=== PATIENT | female | born 1960 | race African-American/Black ===

== ENCOUNTER 2020-02-04 11:08 | Emergency (ER) | payer MEDICAID ==
[~2020-02-04] VITALS: Ht 165.1 cm; Wt 65.0 kg
[~2020-02-04 11:08] MED LIST: CLINDAMYCIN; DIAZ10TA4 PO; HYDR-519 PO; HYDR25TA PO; HYDROCHLOROTHIAZIDE; IBUPROFEN; LISI40TA4 PO; METO-539 PO; PEPCID
[2020-02-04] MEDS ORDERED: ACETAMINOPHEN 500MG TABLET PO ONE (13:00)
[2020-02-04 13:59] VITALS: BP 140/60
== END 2020-02-04 14:01 | disposition home or self-care (01) ==
LOC: ER 11:21
DX: S52.501A Unspecified fracture of the lower end of right radius, initial encounter for closed fracture (principal); Z46.89 Encounter for fitting and adjustment of other specified devices; R03.0 Elevated blood-pressure reading, without diagnosis of hypertension; X58.XXXA Exposure to other specified factors, initial encounter; Y93.89 Activity, other specified; Y92.89 Other specified places as the place of occurrence of the external cause; F17.210 Nicotine dependence, cigarettes, uncomplicated
CPT/HCPCS: 99282; 99283

== ENCOUNTER 2020-03-30 07:11 | Inpatient (IN) | payer MEDICAID ==
[~2020-03-30] VITALS: Ht 157.5 cm; Wt 61.2 kg
[2020-03-30] MEDS ORDERED: ONDANSETRON HCL 4MG/2ML INJ IV STA ×2 (07:32→11:42)
[2020-03-30] MEDS ORDERED: MORPHINE SULFATE 4 MG/ML CPJ (NOT FOR IM USE) IV STA ×2 (07:32→11:42)
[2020-03-30 08:09] LABS: BASOPHILS % 1.1 % (0.0-2.0); EOSINOPHILS % 1.2 % (0.0-5.0); HEMATOCRIT. 40.2 % (36.0-48.0); HEMOGLOBIN. 13.2 g/dL (12.0-16.0); LYMPHOCYTES % 15.3 % (20.0-50.0); MEAN CORPUSCULAR HEMOGLOBIN 27.6 pg (28.0-32.0); MEAN CORPUSCULAR VOLUME 83.6 fL (81.0-99.0); MEAN PLATELET VOLUME 9.3 fl (7.4-10.4); MONOCYTES % 6.7 % (2.0-8.0); NEUTROPHILS % 75.7 % (40.0-76.0); PLATELET 305 x1000/uL (130-400); RED BLOOD CELL COUNT 4.81 mill/uL (4.2-5.4); RED CELL DISTRIBUTION WIDTH 15.5 % (11.6-14.6)
[2020-03-30 08:13] LABS: CHLORIDE 111 mEq/L (98-107)
[2020-03-30 08:16] LABS: PROTHROMBIN TIME 10.6 sec (9.6-11.0)
[2020-03-30 09:54] LABS: CLARITY URINE TURBID (CLEAR); COLOR URINE YELLOW (YELLOW); KETONES URINE NEGATIVE (NEGATIVE); LEUKOCYTE ESTERASE URINE NEGATIVE (NEGATIVE); NITRITE URINE NEGATIVE (NEGATIVE); OCCULT BLOOD URINE NEGATIVE (NEGATIVE); PROTEIN URINE NEGATIVE (NEGATIVE); SPECIFIC GRAVITY URINE 1.034 (1.005-1.030); UROBILINOGEN URINE 0.2 E.U./dL (0.2-1.0)
[2020-03-30] MEDS ORDERED: IOHEXOL-300 100 ML BOTTLE ONE (10:50)
[2020-03-30] MEDS ORDERED: DEXT 5%/0.9% NACL 1,000 ML IV ONE (11:45)
[2020-03-30] MEDS ORDERED: ONDANSETRON 4MG/5ML UDC PO ONE (13:30)
[2020-03-30] MEDS ORDERED: MORPHINE SULFATE 2 MG/ML CPJ (NOT FOR IM USE) IV PRN (13:30)
[2020-03-30] MEDS: DEXT 5%/0.45% NACL 1000ML 1,000 ML IV SCH (15:31)
[2020-03-30] MEDS: AMLODIPINE 10MG TABLET PO SCH (15:31)
[2020-03-30 15:51] VITALS: BP 137/71
[2020-03-30 16:00] VITALS: BP 153/69
[2020-03-30 20:00] VITALS: BP 123/72
[2020-03-30 23:30] LABS: *BENZODIAZEPINES SCREEN URINE NEGATIVE (NEGATIVE); *COCAINE SCREEN URINE PRESUMTIVE POSITIVE (NEGATIVE); METHADONE URINE SCREEN NEGATIVE (NEGATIVE); OPIATES URINE SCREEN PRESUMTIVE POSITIVE (NEGATIVE); PHENCYCLIDINE URINE SCREEN PRESUMTIVE POSITIVE (NEGATIVE)
[2020-03-30 23:31] LABS: *AMPHETAMINES SCREEN URINE NEGATIVE (NEGATIVE); *BARBITURATES SCREEN URINE NEGATIVE (NEGATIVE); CANNABINOID URINE SCREEN NEGATIVE (NEGATIVE)
[2020-03-31] VITALS: BP 127/70
[2020-03-31 04:00] VITALS: BP 133/61
[2020-03-31] MEDS: DEXT 5%/0.45% NACL 1000ML 1,000 ML IV SCH (05:10)
[2020-03-31 06:52] LABS: BASOPHILS % 0.8 % (0.0-2.0); EOSINOPHILS % 2.3 % (0.0-5.0); HEMATOCRIT. 35.3 % (36.0-48.0); HEMOGLOBIN. 11.8 g/dL (12.0-16.0); LYMPHOCYTES % 28.6 % (20.0-50.0); MEAN CORPUSCULAR HEMOGLOBIN 27.8 pg (28.0-32.0); MEAN CORPUSCULAR VOLUME 83.2 fL (81.0-99.0); MEAN PLATELET VOLUME 9.2 fl (7.4-10.4); MONOCYTES % 7.7 % (2.0-8.0); NEUTROPHILS % 60.6 % (40.0-76.0); PLATELET 264 x1000/uL (130-400); RED BLOOD CELL COUNT 4.25 mill/uL (4.2-5.4); RED CELL DISTRIBUTION WIDTH 15.2 % (11.6-14.6)
[2020-03-31 07:04] LABS: CHLORIDE 109 mEq/L (98-107)
[2020-03-31 08:00] VITALS: BP 129/69
[2020-03-31] MEDS: AMLODIPINE 10MG TABLET PO SCH (08:47)
[2020-03-31] MEDS ORDERED: PANTOPRAZOLE SODIUM 40 MG/VIAL IV SCH (09:00)
[2020-03-31] MEDS ORDERED: KCL 20MEQ/100ML PREMIX 100 ML IV SCH (10:00)
[2020-03-31 12:00] VITALS: BP 128/71
[2020-03-31] MEDS ORDERED: POTASSIUM CHLORIDE 20MEQ TABLET SR PO NR (14:07)
[2020-03-31 16:00] VITALS: BP 140/68
[2020-03-31] MEDS ORDERED: ATOR20TA65 MT (17:57)
[2020-03-31 18:55] VITALS: BP 140/68
[2020-04-01] MEDS ORDERED: ALBU18HF2 IH (09:59)
[2020-04-01] MEDS ORDERED: ACET650T37 MT (09:59)
== END 2020-03-31 21:07 | disposition home or self-care (01) | DRG 247 ==
LOC: ER 07:17 → EDBEDREQTM 10:59 → EDBEDREQ 10:59 → EDBEDREQSVC 10:59 → 6EST 11:42 → EDBEDREQ 11:46 → ENRESERV 12:10
PROVIDERS: ADMIT Internal Medicine; ATTEND Internal Medicine
DX: K56.600 Partial intestinal obstruction, unspecified as to cause (principal); E44.1 Mild protein-calorie malnutrition; E87.8 Other disorders of electrolyte and fluid balance, not elsewhere classified; F17.210 Nicotine dependence, cigarettes, uncomplicated; I10 Essential (primary) hypertension; J44.9 Chronic obstructive pulmonary disease, unspecified; Z90.49 Acquired absence of other specified parts of digestive tract; Z88.0 Allergy status to penicillin; Z88.8 Allergy status to other drugs, medicaments and biological substances; Z79.2 Long term (current) use of antibiotics; Z79.899 Other long term (current) drug therapy; Z71.6 Tobacco abuse counseling; Z68.24 Body mass index [BMI] 24.0-24.9, adult
CPT/HCPCS: 36415; 71045; 74018; 74177; 80048; 80053; 80305; 81003; 83605; 84484; 85025; 93005; 99285; C9113; J2270; J2405; J3480; J7042; Q9967

== ENCOUNTER 2020-10-30 18:09 | Inpatient (IN) | payer MEDICAID ==
[~2020-10-30] VITALS: Ht 165.1 cm; Wt 60.8 kg
[~2020-10-30 18:09] MED LIST changes: +ACET650T37 MT; +ALBU18HF2 IH; +ATOR20TA65 MT; -CLINDAMYCIN; -HYDROCHLOROTHIAZIDE; -IBUPROFEN; +LISI40TA13 PO; -LISI40TA4 PO; -METO-539 PO; -PEPCID
[2020-10-30] MEDS ORDERED: MORPHINE SULFATE 4 MG/ML CPJ (NOT FOR IM USE) IV STA (19:03)
[2020-10-30] MEDS ORDERED: ONDANSETRON HCL 4MG/2ML INJ IV STA (19:03)
[2020-10-30] MEDS ORDERED: SODIUM CHLORIDE 0.9% 1,000 ML IV ONE (19:15)
[2020-10-30 19:23] LABS: CLARITY URINE CLEAR (CLEAR); COLOR URINE YELLOW (YELLOW); KETONES URINE NEGATIVE (NEGATIVE); LEUKOCYTE ESTERASE URINE TRACE (NEGATIVE); NITRITE URINE NEGATIVE (NEGATIVE); OCCULT BLOOD URINE 1+ (NEGATIVE); PH URINE 5.5 (4.5-8.0); PROTEIN URINE NEGATIVE (NEGATIVE); UROBILINOGEN URINE 0.2 E.U./dL (0.2-1.0)
[2020-10-30 19:56] LABS: BASOPHILS % 0.3 % (0.0-2.0); EOSINOPHILS % 1.1 % (0.0-5.0); HEMATOCRIT. 37.3 % (36.0-48.0); HEMOGLOBIN. 12.2 g/dL (12.0-16.0); LYMPHOCYTES % 14.5 % (20.0-50.0); MEAN CORPUSCULAR HEMOGLOBIN 26.5 pg (28.0-32.0); MONOCYTES % 6.6 % (2.0-8.0); NEUTROPHILS % 77.5 % (40.0-76.0); PLATELET 278 x1000/uL (130-400); RED BLOOD CELL COUNT 4.61 mill/uL (4.2-5.4); RED CELL DISTRIBUTION WIDTH 15.7 % (11.6-14.6)
[2020-10-30 20:01] LABS: CHLORIDE 109 mEq/L (98-107)
[2020-10-30 20:06] LABS: PARTIAL THROMBOPLASTIN TIME 30.4 sec (23.4-31.0); PROTHROMBIN TIME 10.8 sec (9.6-11.0)
[2020-10-31] MEDS ORDERED: ONDANSETRON HCL 4MG/2ML INJ IV PRN (07:30)
[2020-10-31] MEDS ORDERED: HYDROCODONE/ACETAMINOPHEN 5/325MG TABLET PO PRN (07:30)
[2020-10-31] MEDS ORDERED: CLONIDINE 0.1MG TABLET PO PRN (07:30)
[2020-10-31] MEDS ORDERED: GUAIFENESIN 200MG/10ML SUGAR FREE UDC PO PRN (07:30)
[2020-10-31] MEDS ORDERED: MORPHINE SULFATE 2 MG/ML CPJ (NOT FOR IM USE) IV PRN (07:30)
[2020-10-31] MEDS ORDERED: DOCUSATE SODIUM 100MG CAPSULE PO PRN (07:30)
[2020-10-31] MEDS ORDERED: LORAZEPAM 2MG/ML CPJ IV PRN (07:30)
[2020-10-31] MEDS ORDERED: MAGNESIUM/ALUMINUM HYDROXIDE/SIMETHICONE 30ML UDC PO PRN (07:30)
[2020-10-31] MEDS ORDERED: IPRATROPIUM/ALBUTEROL 0.5-3(2.5)MG/3ML NEB NEB PRN (07:30)
[2020-10-31] MEDS ORDERED: DIPHENHYDRAMINE 50MG/ML VIAL IV PRN (07:30)
[2020-10-31] MEDS ORDERED: NA PHOS,M-B/NA PHOS,DI-BA ENEMA 118ML PR PRN (07:30)
[2020-10-31] MEDS: DEXT 5%/0.45% NACL 1000ML 1,000 ML IV SCH ×2 (08:38→17:42)
[2020-10-31] MEDS: ENOXAPARIN 40MG/0.4ML SYR SUBCUT SCH (08:57)
[2020-10-31 10:07] VITALS: BP 123/60
[2020-10-31 12:00] VITALS: BP 112/55
[2020-10-31 12:32] LABS: CHLORIDE 112 mEq/L (98-107)
[2020-10-31 16:00] VITALS: BP 120/65
[2020-10-31] MEDS: LEVOFLOXACIN 500MG PREMIX 100 ML IV SCH (17:42)
[2020-10-31] MEDS: ACETAMINOPHEN 325MG TABLET PO PRN (17:55)
[2020-10-31] MEDS: BISACODYL 10MG SUPP PR NR ×3 (18:34→18:43)
[2020-10-31 20:00] VITALS: BP 120/47
[2020-11-01] VITALS: BP 117/50
[2020-11-01 03:53] LABS: *AMPHETAMINES SCREEN URINE NEGATIVE (NEGATIVE); *BARBITURATES SCREEN URINE NEGATIVE (NEGATIVE); *BENZODIAZEPINES SCREEN URINE NEGATIVE (NEGATIVE); *COCAINE SCREEN URINE NEGATIVE (NEGATIVE)
[2020-11-01 03:54] LABS: CANNABINOID URINE SCREEN NEGATIVE (NEGATIVE); METHADONE URINE SCREEN NEGATIVE (NEGATIVE); OPIATES URINE SCREEN PRESUMTIVE POSITIVE (NEGATIVE); PHENCYCLIDINE URINE SCREEN PRESUMTIVE POSITIVE (NEGATIVE)
[2020-11-01 04:00] VITALS: BP 100/61
[2020-11-01] MEDS: ENOXAPARIN 40MG/0.4ML SYR SUBCUT SCH ×2 (08:00→08:06)
[2020-11-01 08:43] VITALS: BP 145/73
[2020-11-01 09:06] LABS: CHLORIDE 110 mEq/L (98-107)
[2020-11-01 09:14] LABS: HDL CHOLESTEROL 43 mg/dL (40-59); LDL CHOLESTEROL 97 mg/dL (5-100)
[2020-11-01 09:47] LABS: BASOPHILS % 0.9 % (0.0-2.0); EOSINOPHILS % 3.2 % (0.0-5.0); HEMATOCRIT. 34.8 % (36.0-48.0); HEMOGLOBIN. 11.5 g/dL (12.0-16.0); LYMPHOCYTES % 23.5 % (20.0-50.0); MEAN CORPUSCULAR HEMOGLOBIN 26.9 pg (28.0-32.0); MEAN CORPUSCULAR VOLUME 81.5 fL (81.0-99.0); MEAN PLATELET VOLUME 9.2 fl (7.4-10.4); MONOCYTES % 6.9 % (2.0-8.0); NEUTROPHILS % 65.5 % (40.0-76.0); PLATELET 253 x1000/uL (130-400); RED BLOOD CELL COUNT 4.27 mill/uL (4.2-5.4); RED CELL DISTRIBUTION WIDTH 15.3 % (11.6-14.6)
[2020-11-01 12:20] VITALS: BP 142/73
[2020-11-01] MEDS: LEVOFLOXACIN 500MG PREMIX 100 ML IV SCH (12:46)
[2020-11-01 16:10] VITALS: BP 166/75
[2020-11-01] MEDS: ACETAMINOPHEN 325MG TABLET PO PRN (16:48)
[2020-11-01] MEDS: DEXT 5%/0.45% NACL 1000ML 1,000 ML IV SCH ×2 (16:50→16:59)
[2020-11-01 20:00] VITALS: BP 147/63
[2020-11-02] VITALS: BP 137/77
[2020-11-02 04:00] VITALS: BP 158/75
[2020-11-02] MEDS: DEXT 5%/0.45% NACL 1000ML 1,000 ML IV SCH (04:20)
== END 2020-11-02 07:40 | disposition left against medical advice (07) | DRG 247 ==
LOC: ER 18:14 → 7WST 22:24 → EDBEDREQ 22:29 → ENRESERV 10-31 02:04 → CANRESERV 10-31 02:04 → ENRESERV 10-31 08:14 → 8WST 11-01 08:58
PROVIDERS: ADMIT Internal Medicine; ATTEND Internal Medicine
DX: K56.609 Unspecified intestinal obstruction, unspecified as to partial versus complete obstruction (principal); E44.0 Moderate protein-calorie malnutrition; E86.0 Dehydration; J44.9 Chronic obstructive pulmonary disease, unspecified; K57.90 Diverticulosis of intestine, part unspecified, without perforation or abscess without bleeding; Z53.29 Procedure and treatment not carried out because of patient's decision for other reasons; I10 Essential (primary) hypertension; Z20.822 Contact with and (suspected) exposure to COVID-19; F11.10 Opioid abuse, uncomplicated; F17.200 Nicotine dependence, unspecified, uncomplicated; F16.10 Hallucinogen abuse, uncomplicated; Z88.6 Allergy status to analgesic agent; Z88.0 Allergy status to penicillin; Z79.899 Other long term (current) drug therapy; Z90.722 Acquired absence of ovaries, bilateral; Z90.49 Acquired absence of other specified parts of digestive tract
CPT/HCPCS: 36415; 71045; 74018; 74176; 80048; 80053; 80061; 80305; 81003; 83605; 84484; 85025; 86850; 86900; 93005; 99285; J1650; J1956; J2270; J2405; J7030; U0003

== ENCOUNTER 2021-06-15 19:21 | Emergency (ER) | payer MEDICAID, OTHER ==
[~2021-06-15] VITALS: Ht 170.2 cm; Wt 64.0 kg
[~2021-06-15 19:21] MED LIST changes: -DIAZ10TA4 PO; -HYDR-519 PO; -HYDR25TA PO; -LISI40TA13 PO
[2021-06-15] MEDS ORDERED: ASPIRIN 325MG EC TABLET PO ONE (20:45)
[2021-06-15] MEDS ORDERED: KETOROLAC 15MG/ML VIAL IV ONE (21:00)
[2021-06-15 22:54] LABS: BASOPHILS % 0.6 % (0.0-2.0); EOSINOPHILS % 0.8 % (0.0-5.0); HEMATOCRIT. 35.3 % (36.0-48.0); HEMOGLOBIN. 11.8 g/dL (12.0-16.0); MEAN CORPUSCULAR HEMOGLOBIN 26.6 pg (28.0-32.0); MEAN CORPUSCULAR VOLUME 79.5 fL (81.0-99.0); MEAN PLATELET VOLUME 9.3 fl (7.4-10.4); MONOCYTES % 4.6 % (2.0-8.0); PLATELET 332 x1000/uL (130-400); RED BLOOD CELL COUNT 4.44 mill/uL (4.2-5.4); RED CELL DISTRIBUTION WIDTH 16.5 % (11.6-14.6)
[2021-06-15 23:01] LABS: CHLORIDE 108 mEq/L (98-107)
[2021-06-15 23:06] LABS: ETHANOL BLOOD < 10 mg/dL
[2021-06-15] MEDS ORDERED: POTASSIUM CHLORIDE 20MEQ TABLET SR PO NR (23:45)
[2021-06-16 03:20] LABS: CLARITY URINE CLOUDY (CLEAR); COLOR URINE DARK YELLOW (YELLOW); KETONES URINE TRACE (NEGATIVE); LEUKOCYTE ESTERASE URINE TRACE (NEGATIVE); NITRITE URINE NEGATIVE (NEGATIVE); OCCULT BLOOD URINE NEGATIVE (NEGATIVE); PROTEIN URINE 1+ (NEGATIVE); SPECIFIC GRAVITY URINE 1.031 (1.005-1.030)
[2021-06-16 03:32] LABS: *AMPHETAMINES SCREEN URINE NEGATIVE (NEGATIVE); *BARBITURATES SCREEN URINE NEGATIVE (NEGATIVE); *COCAINE SCREEN URINE PRESUMTIVE POSITIVE (NEGATIVE); CANNABINOID URINE SCREEN NEGATIVE (NEGATIVE); METHADONE URINE SCREEN NEGATIVE (NEGATIVE); OPIATES URINE SCREEN NEGATIVE (NEGATIVE); PHENCYCLIDINE URINE SCREEN PRESUMTIVE POSITIVE (NEGATIVE)
[2021-06-16 03:33] LABS: *BENZODIAZEPINES SCREEN URINE NEGATIVE (NEGATIVE)
[2021-06-16 04:42] VITALS: BP 155/72
== END 2021-06-16 04:42 | disposition short-term general hospital (02) ==
LOC: ER 19:21
DX: K56.609 Unspecified intestinal obstruction, unspecified as to partial versus complete obstruction (principal); I10 Essential (primary) hypertension; Z88.8 Allergy status to other drugs, medicaments and biological substances; Z88.0 Allergy status to penicillin; Z79.899 Other long term (current) drug therapy
CPT/HCPCS: 36415; 71045; 74176; 80053; 80305; 80320; 81003; 83690; 85025; 96374; 99285; J1885; Z7610; G0480

== ENCOUNTER 2021-08-22 19:22 | Emergency (ER) | payer MEDICAID, OTHER ==
[~2021-08-22] VITALS: Ht 167.6 cm; Wt 73.0 kg
[2021-08-22] MEDS ORDERED: ALBUTEROL (0.083%) 2.5MG/3ML NEB HHN STA (20:38)
[2021-08-22] MEDS ORDERED: PREDNISONE 20MG TABLET PO ONE (21:30)
[2021-08-22] MEDS ORDERED: BENZ-16 PO (21:32)
[2021-08-22] MEDS ORDERED: P50 PO (21:32)
[2021-08-22] MEDS ORDERED: ALBU6.7H9 INH (21:32)
[2021-08-22 21:50] VITALS: BP 168/80
== END 2021-08-22 22:11 | disposition home or self-care (01) ==
LOC: ER 19:22
DX: J45.901 Unspecified asthma with (acute) exacerbation (principal)
CPT/HCPCS: 71045; 94640; 99283; J7512; Z7610